=== PATIENT | female | born 1980 | race Caucasian/White ===

== ENCOUNTER 2020-02-12 05:18 | Day surgery (SDC) | payer OTHER ==
[2020-02-11 11:42] VITALS: BMI 33.0
[2020-02-12 13:13] VITALS: TEMP 97.1
[2020-02-12 13:18] VITALS: PULSE 70
[2020-02-12 13:38] VITALS: BP 120/88
--- NOTE | 2020-02-15 19:28 | PATH ---
Surgical Pathology Report Patient Name: [facility]. Rec. #: [id number] /Age/Gender: 1980 (Age: 39) / F Account: [id number] Location: U-ENDOSCOPY Taken: 02/12/2020 Received: 02/12/2020 Reported: 02/15/2020 Physicians: Hugo Calzada M.D. Specimen(s) Received A: STOMACH B: ESOPHAGUS Clinical History Heartburn Postoperative diagnosis: Gastric erosions Final Diagnosis A. STOMACH, BIOPSY: GASTRIC MUCOSA WITH MILD CHRONIC GASTRITIS. IMMUNOHISTOCHEMICAL STAIN FOR H. PYLORI IS NEGATIVE. B. ESOPHAGUS, BIOPSY: SQUAMOUS MUCOSA WITH CHANGES OF MILD REFLUX TYPE ESOPHAGITIS. Positive and negative controls (internal if applicable) show appropriate results. Electronically Signed Marlys Robles M.D. Gross Description A. Received in formalin, labeled "biopsy stomach" are 2 pantoja, irregular portions of soft tissue measuring 0.1 and 0.2 cm. in greatest dimension. The specimens are submitted in toto in one cassette. B. Received in formalin, labeled "biopsy esophagus" are 2 pantoja, irregular portions of soft tissue averaging 0.2 cm. in greatest dimension. The specimens are submitted in toto in one cassette. 02/12/2020 saudi02/12/2020
== END 2020-02-12 13:45 | disposition home or self-care (01) ==
LOC: JASU-ENDO 05:18
PROVIDERS: ATTEND Internal Medicine Gastroenterology
PROC: 0DB68ZX Excision of Stomach, Via Natural or Artificial Opening Endoscopic, Diagnostic (ICD-10-PCS; 2020-02-12)
PROC: 0DB48ZX Excision of Esophagogastric Junction, Via Natural or Artificial Opening Endoscopic, Diagnostic (ICD-10-PCS; principal; 2020-02-12 12:30)
DX: K29.50 Unspecified chronic gastritis without bleeding (principal); K21.0 Gastro-esophageal reflux disease with esophagitis
CPT/HCPCS: 81025; 88305-TC; 88342-TC